=== PATIENT | female | born 1950 | race Caucasian/White ===

== ENCOUNTER 2017-04-28 07:00 | Day surgery (SDC) | payer MEDICARE ==
[~2017-04-28] VITALS: Ht 157.5 cm; Wt 69.4 kg
[~2017-04-28 07:00] MED LIST: MULTIVITAMINS1 EAC8 PO; VITAMIN B COMP1 EAC1 PO; VITAMIN D31000 UNI1 PO
--- NOTE | 2017-04-28 10:09 | NUR ---
PT RESTING IN BED-PLEASANT, ALERT AND ORIENTED. HER SISTER ANDREI IN SUPPORT. PT SEEMED INFORMED, DEALING WITH SURGERY APPROPRIATELY. SHE MENTIONED THAT SHE HAD OTHER THINGS IN LIFE TO ACCOMPLISH, AND DIDN'T HAVE PLANS TO LET THIS SLOW HER DOWN. PT REQUESTED PRAYER, WILL FOLLOW NEEDED
[2017-04-28] MEDS ORDERED: IBUPROFEN600 MG PO (14:45)
--- NOTE | 2017-04-28 14:45 | NUR ---
04/28/17 1445 Ana Rosa Worthington 1432 PT ARRIVED IN PACU ASLEEP. 1445 PT AWAKE TALKING TO STAFF. NO C/O'S.
[2017-04-28] MEDS ORDERED: OXYCODON-ACETA1 EAC2 PO (14:46)
[2017-04-28] MEDS ORDERED: MAPAP325 MG PO (14:46)
--- NOTE | 2017-04-28 15:39 | NUR ---
PT IS BACK TO FROM PACU. PT IS AWAKE AND TALKING WITH SISTER. SHE IS REPORTING PAIN IN HER LEFT BREAST A 5/10. CALL LIGHT WITHIN REACH. NO OTHER C/O'S AT THIS TIME. WILL REASSESS WITHIN THE HOUR.
--- NOTE | 2017-04-28 16:16 | NUR ---
PT HAS BEEN UP TO THE BATHROOM, TOLERATED PUDDING, WATER, AND PAIN PILLS. SHE REPORTS HER PAIN IS IMPROVING. SHE IS DRESSED AND READY TO LEAVE. NO OTHER C/O'S. GOING TO GO OVER DISCHARGE INSTRUCTIONS WITH THE PT AND HER SISTER.
--- NOTE | 2017-04-29 09:53 | OR ---
[facility] [address], [place] [address] Signed DATE OF OPERATION: 04/28/2017 SURGEON: Marii Vences MD PREOPERATIVE DIAGNOSIS: Left upper outer quadrant infiltrating ductal breast carcinoma. POSTOPERATIVE DIAGNOSES: 1. Left upper outer quadrant infiltrating ductal breast carcinoma. 2. Negative axillary sentinel lymph node, left side. PROCEDURES: 1. Injection of methylene blue for sentinel lymph node identification. 2. Left deep axillary lymph node biopsy. 3. Left partial mastectomy (upper outer quadrant). ANESTHESIA: General LMA, Kaylie Liu CRNA. INDICATION: This 66-year-old white woman is a patient Dr. Dove. She was found to have an abnormality of the left upper outer quadrant of the breast. The lesion was considered nonpalpable initially and she underwent core biopsy by Jasmyn Tony MD, which confirmed infiltrating ductal carcinoma. She has no systemic symptoms of chest pain, bone pain, or other particular problems. Clinical examination shows no suspicious axillary nodes on the left side. The area of the upper outer quadrant of the left breast corresponding to the lesion is quite easily palpable previously associated with hematoma. Her various options of management have been reviewed and she opts for breast conservation approach including lumpectomy (partial mastectomy), sentinel lymph node biopsy, possible axillary dissection and radiation therapy. Additional therapy would be offered as appropriate. She understands the risks of bleeding, infection, cosmetic deformity, need for additional treatment, certain need for radiation therapy, and possible need for chemotherapy depending on sentinel lymph nodes. She also understands that axillary dissection would be recommended if sentinel lymph node is positive. Understanding all of this, she wished to proceed. Electronically Signed By: MARII VENCES MD 04/29/17 0953 PATIENT NAME: ABIMBOLA LEBRON OPERATIVE REPORT DATE OF : 52 REPORT #: [id number] PHYSICIAN: MARII VENCES MD PCP: DELVIN DOVE DO REPORT IS CONFIDENTIAL AND NOT TO BE RELEASED WITHOUT AUTHORIZATION [facility] [address], [place] [address] Signed FINDINGS: Attempts at localization of the sentinel lymph node by radionuclide technique was challenging. She required an additional 2 hours of imaging to faintly identify an axillary node in the superior medial aspect. This node was identified on axillary dissection, but did not uptake methylene blue dye as it had been anticipated. It was found to be negative on frozen pathology. There were no other suspicious palpable or visible lymph nodes of the axilla. No other areas that had uptake of dye or radionuclide. As regard to the primary tumor, it was in the upper outer aspect of the left breast and wide excision was undertaken with clinically negative margin. The margins of the excised specimen were appropriately marked. DESCRIPTION OF PROCEDURE: The patient was brought to the operating room after being received from the radiology suite. She was given a general anesthetic by LMA technique. Preoperative antibiotics were given. Sequential compression device stocking was used and heparin subcutaneously administered. The left breast was palpated and a palpable mass in the upper outer aspect was noted corresponding to the offending lesion. A 1 mL of methylene blue dye was injected in the subepidermal space in the areolar margin on the left side. The breast was then prepared with a chlorhexidine solution and draped sterilely. Using the C-Trak probe, the hottest area of the axilla was identified as the superior anterior aspect and a small transverse incision was made at that site. Dissection was carried through the subcutaneous tissue with blunt dissection and with use of [facility] retractors and the probe dissection undertaken. Ultimately, a node corresponding to the probe was identified. It really had no uptake of methylene blue dye, however. This was gently grasped with an Allis clamp and found to be at least a centimeter and possibly larger in size. Clips were applied to the site and it was excised. It was checked and found to be extremely avid and uptake of the radionuclide, but no uptake whatsoever really of the dye itself. This was sentinel lymph node #1. Further palpation of the axilla as well as interrogation with a C-Trak probe showed no other areas of hot uptake. Inferiorly and medially, examination was undertaken. There were no additional nodes. The wound was then packed with plain gauze. The palpable lesion a few centimeters from the areolar margin was easily identified. A curvilinear incision was made directly over it. Using sharp dissection and ultimately cautery, the dermis was divided and wide resection was undertaken with the lesion kept in the center portion of the specimen. Wide excision was accomplished. An additional bit of tissue was excised in the deep lateral aspect, though it was not contiguous with the primary lesion so far as could be told. This was appropriately labeled as was the Electronically Signed By: MARII VENCES MD 04/29/17 0953 PATIENT NAME: ABIMBOLA LEBRON OPERATIVE REPORT DATE OF : 52 REPORT #: [id number] PHYSICIAN: MARII VENCES MD PCP: DELVIN DOVE DO REPORT IS CONFIDENTIAL AND NOT TO BE RELEASED WITHOUT AUTHORIZATION [address] [address] Signed initial excision site with the short stitch superior, long stitch lateral, and a double stitch in the deep margin. Irrigation was undertaken with plain water. There was no evidence of bleeding. The wound was reapproximated in its parenchymal layer with interrupted 2-0 Vicryl as was the deep dermal layer. The skin was closed with running subcuticular 3-0 Vicryl. At this point, return of the frozen pathology confirmed the sentinel lymph node to be negative for metastatic disease. That wound was once again irrigated and examined and hemostasis assured with electrocautery or sutures as necessary, but there was not really much bleeding. The wound was closed in layers with interrupted 2-0 Vicryl and a running subcuticular 3-0 Vicryl as well. Steri-Strips were applied as was a single Mepilex silver sponge dressing incorporating the breast incision as well as the axillary incision. An OpSite dressing was applied. The patient was ultimately extubated and transferred to recovery room in good condition having suffered no complication. Sponge, needle, and instrument counts were reported as correct x3. MD CHELSEA Zamora/RODRIGOL /[id number] cc: MD Delvin Chery DO Copies: JASMYN TONY MD, ARIAN DO ~ Electronically Signed By: MARII VENCES MD 04/29/17 0953 PATIENT NAME: ABIMBOLA LEBRON OPERATIVE REPORT DATE OF : 52 REPORT #: [id number] PHYSICIAN: MARII VENCES MD PCP: DELVIN DOVE DO REPORT IS CONFIDENTIAL AND NOT TO BE RELEASED WITHOUT AUTHORIZATION
== END 2017-04-28 16:25 | disposition home or self-care (01) ==
LOC: DS 07:00
PROVIDERS: Surgery
PROC: 0HBU0ZZ Excision of Left Breast, Open Approach (ICD-10-PCS; principal; 2017-04-28 13:45)
DX: C50.412 Malignant neoplasm of upper-outer quadrant of left female breast (principal); Z98.51 Tubal ligation status; Z98.890 Other specified postprocedural states; Z87.891 Personal history of nicotine dependence; Z79.899 Other long term (current) drug therapy; Z17.0 Estrogen receptor positive status [ER+]
CPT/HCPCS: 00406; 78195; 88305; 88307; 88342; 88360; 88377; A9541; J0690; J1100; J1644; J1885; J2250; J2270; J2405; J3010; J7120

== ENCOUNTER 2017-06-18 13:13 | Day surgery (SDC) | payer MEDICARE ==
[~2017-06-18] VITALS: Ht 154.9 cm; Wt 69.4 kg
[~2017-06-18 13:13] MED LIST changes: +IBUPROFEN600 MG PO; +MAPAP325 MG PO; +OXYCODON-ACETA1 EAC2 PO
--- NOTE | 2017-06-18 15:57 | NUR ---
06/18/17 1556 Raisa Toth 0406-PATIENT ARRIVED TO PACU ON 2L NC O2 SAT 100% PATIENT AWAKE DENIES PAIN OR NAUSEA. LAYING ON LEFT LATERAL ABDOMEN SOFT.
--- NOTE | 2017-06-20 10:03 | OR ---
[facility] [address] [place], [place] [address] Signed DATE OF OPERATION: 06/18/2017 SURGEON: Marii Vences MD PREOPERATIVE DIAGNOSES: 1. Colon screening. 2. Family history of colon cancer (sister). POSTOPERATIVE DIAGNOSIS: Polyps x2 (sigmoid and rectosigmoid). PROCEDURE: Total colonoscopy to cecum with snare polypectomy x1 and cold morcellation polypectomy x1. ANESTHESIA: Intravenous sedation, fentanyl 100 mcg, Versed 7 mg. INDICATION: This 66-year-old white woman is a patient of Dr. Dove and is here for a screening colonoscopy. She does have family history of colon cancer in a sister. She understands the risks of bleeding, infection, and perforation related to colonoscopy and wishes to proceed. FINDINGS: The prep was excellent. Complete colonoscopy was undertaken to the cecum. There were 2 small polyps, one slightly pedunculated at the sigmoid, which was excised with cold snare technique and another sessile one at the low rectosigmoid excised with cold morcellation technique. Remaining colon was normal. PROCEDURE IN DETAIL: The patient was brought to the endoscopy suite and placed in lateral decubitus position, given intravenous sedation to the point of slurred speech and nystagmus. Digital rectal examination was normal. An Olympus video colonoscope was passed in the rectum and manipulated throughout the colon, ultimately intubating the cecum itself. The ileocecal valve and appendiceal orifice were normal. Scope was withdrawn from that point. Examination throughout undertaken, showed no sign of abnormality until approximately 15 cm from the anal verge in the sigmoid where a broad-based, somewhat pedunculated polyp was noted. This was Electronically Signed By: MARII VENCES MD 06/20/17 1003 PATIENT NAME: ABIMBOLA LEBRON OPERATIVE REPORT DATE OF : 52 REPORT #: [id number] PHYSICIAN: MARII VENCES MD PCP: DELVIN DOVE DO REPORT IS CONFIDENTIAL AND NOT TO BE RELEASED WITHOUT AUTHORIZATION [facility] [address] [place] [address] [place], [place] [address] Signed excised with cold snare polypectomy technique. Specimen was passed for pathology. The scope was further withdrawn and a small sessile polyp was noted in the rectosigmoid. This was excised with cold morcellation technique alone. Retroflexed view was normal. Scope was removed. The patient was taken to the recovery room in good condition. CONCLUDING DIAGNOSIS: Polyps x2. PLAN: Recommend repeat colonoscopy in 5 years, sooner if clinically indicated. She will return to the ongoing care of Dr. Dove, otherwise. MD CHELSEA Zamora/WILL /[id number] cc: Delvin Dove DO Copies: DELVIN DOVE DO ~ Electronically Signed By: MARII VENCES MD 06/20/17 1003 PATIENT NAME: ABIMBOLA LEBRON OPERATIVE REPORT DATE OF : 52 REPORT #: [id number] PHYSICIAN: MARII VENCES MD PCP: DELVIN DOVE DO REPORT IS CONFIDENTIAL AND NOT TO BE RELEASED WITHOUT AUTHORIZATION
== END 2017-06-18 16:25 | disposition home or self-care (01) ==
LOC: OPS 13:13 → DS 13:13 → OPS 16:25
PROVIDERS: Surgery
PROC: 0DBN8ZZ Excision of Sigmoid Colon, Via Natural or Artificial Opening Endoscopic (ICD-10-PCS; principal; 2017-06-18 14:00)
DX: Z12.11 Encounter for screening for malignant neoplasm of colon (principal); K63.5 Polyp of colon; Z80.0 Family history of malignant neoplasm of digestive organs
CPT/HCPCS: 88305; 99153; G0500; J2250; J3010; J7120